=== PATIENT | male | born 1985 ===

== ENCOUNTER 2022-11-16 10:15 | Inpatient (IN) | payer OTHER ==
[~2022-11-16] VITALS: Ht 165.1 cm; Wt 103.4 kg
[2022-11-16] MEDS ORDERED: LIPITOR20 MG PO (12:29)
[2022-11-16] MEDS ORDERED: COZAAR25 MG PO (12:29)
[2022-11-16] MEDS ORDERED: REPAGLINIDE PO (12:31)
[2022-11-22] MEDS ORDERED: REPAGLINIDE0.5 MG (08:28)
[2022-11-25] MEDS ORDERED: TRAM1TAB98 PO (10:41)
[2022-11-25] MEDS ORDERED: PROTONIX40 MG PO (10:42)
== END 2022-11-25 13:11 | disposition home or self-care (01) | DRG 331 ==
LOC: EDBD 11-18 10:15 → SURG 11-18 10:15 → O/R 11-22 05:14 → SURG 11-22 13:18 → SURH 11-23 16:32
PROVIDERS: ADMIT Surgery; ATTEND Surgery
PROC: 0DBP4ZZ Excision of Rectum, Percutaneous Endoscopic Approach (ICD-10-PCS; 2022-11-22)
PROC: 0DJD8ZZ Inspection of Lower Intestinal Tract, Via Natural or Artificial Opening Endoscopic (ICD-10-PCS; 2022-11-22)
PROC: 0DTN4ZZ Resection of Sigmoid Colon, Percutaneous Endoscopic Approach (ICD-10-PCS; principal; 2022-11-22 11:00)
PROC: 4A12X4Z Monitoring of Cardiac Electrical Activity, External Approach (ICD-10-PCS; 2022-11-23)
DX: K57.32 Diverticulitis of large intestine without perforation or abscess without bleeding (principal); I11.0 Hypertensive heart disease with heart failure; E11.9 Type 2 diabetes mellitus without complications; Z79.4 Long term (current) use of insulin